=== PATIENT | female | born 1945 | race Hispanic/Latino ===

== ENCOUNTER 2016-12-16 15:44 | Inpatient (IN) | payer BC, MEDICARE ==
--- NOTE | 2016-12-16 16:31 | ED PDOC ---
HPI: Seizure Time Seen by Provider: 12/16/16 15:51 Chief Complaint (Nursing): Seizure History Per: Patient, EMS History/Exam Limitations: no limitations Recent Seizure Activity Began: Just Before Arrival Number Of Seizures: One Length Of Seizures (Duration): Minutes Quality Of Seizure: Focal Involving: (left arm only6) Precipitating Factor(s): None. denies: Decreased Sleep, Missed Dose Of Anti- seizure Medication, Recent Change In Medication Or Dose, Recent Alcohol Ingestion, Recent Street Drugs, Recent Head Trauma Associated Symptoms: denies: Bit Tongue, Incontinence Of Urine, Incontinence Of Stool, Injury As A Result Of Seizure Activity Post-ictal Period: No Severity: Mild Additional History Per: Patient Additional Complaint(s): pt had tremors of her left hand only no loc no syncope no bowel or bladder incontinence no post ictal. no prev sx. Past Medical History Reviewed: Historical Data, Nursing Documentation, Vital Signs Vital Signs: Last Vital Signs Temp 98.0 F 12/16/16 18:29 Pulse 90 12/16/16 18:29 Resp 20 12/16/16 18:29 BP 157/96 H 12/16/16 18:29 Pulse Ox 98 12/16/16 18:29 - Medical History PMH: HTN, Hyperlipidemia - Surgical History Surgical History: Cholecystectomy - Family History Family History: States: Unknown Family Hx - Living Arrangements Living Arrangements: With Family - Social History Current smoker - smoking cessation education provided: No Alcohol: None Drugs: Denies - Allergies Allergies/Adverse Reactions: Allergies Allergy/AdvReac Type Severity Reaction Status Date / Time No Known Allergies Allergy Verified 12/16/16 15:59 Review of Systems ROS Statement: Except As Marked, All Systems Reviewed And Found Negative Constitutional: Negative for: Fever, Chills Cardiovascular: Negative for: Chest Pain, Palpitations Respiratory: Negative for: Cough, Shortness of Breath Gastrointestinal: Negative for: Nausea, Vomiting, Abdominal Pain Genitourinary Female: Negative for: Dysuria Musculoskeletal: Negative for: Neck Pain Skin: Negative for: Rash Neurological: Positive for: Seizures. Negative for: Weakness, Numbness, Incoordination, Change in Speech, Confusion, Altered Mental Status, Headache, Dizziness Physical Exam - Reviewed Nursing Documentation Reviewed: Yes Vital Signs Reviewed: Yes - Physical Exam Appears: Positive for: Well, No Acute Distress Head Exam: Positive for: ATRAUMATIC, NORMAL INSPECTION, NORMOCEPHALIC Skin: Positive for: Normal Color, Warm, Dry Eye Exam: Positive for: Normal appearance, EOMI. Negative for: Nystagmus, Periorbital swelling, Periorbital tenderness ENT: Positive for: Pharynx Is (clear,mmm) Neck: Positive for: Normal, Painless ROM, Supple. Negative for: Decreased ROM, Limited ROM, Trachea Midline Cardiovascular/Chest: Positive for: Regular Rate, Rhythm, Chest Non Tender. Negative for: Edema, Gallop, Murmur, Bradycardia, Tachycardia, Ectopy, Friction Rub, Irregularly Irregular Respiratory: Positive for: Normal Breath Sounds. Negative for: Decreased Breath Sounds, Accessory Muscle Use, Crackles, Rales, Rhonchi, Stridor, Wheezing , Respiratory Distress Pulses-Radial (L): 2+ Pulses-Radial (R): 2+ Gastrointestinal/Abdominal: Positive for: Normal Exam, Bowel Sounds, Soft. Negative for: Tenderness Back: Positive for: Normal Inspection. Negative for: L CVA Tenderness, R CVA Tenderness Extremity: Positive for: Normal ROM. Negative for: Tenderness, Pedal Edema, Calf Tenderness, Deformity, Swelling Neurologic/Psych: Positive for: Alert, press loader II-XII, Oriented, Mood/Affect (calm) , Cerebellar Tests (ftn and nts nml). Negative for: Motor/Sensory Deficits, Aphasia, Facial Droop - Laboratory Results Result Diagrams: 12/16/16 16:57 12/16/16 16:57 - ECG ECG: Positive for: Interpreted By Wa ECG Rhythm: Positive for: Normal ST Segment, Sinus Rhythm, Right Bundle Branch Block. Negative for: ST/T Changes Interpretation Of Abn EKG: rate of 96 no old ecg O2 Sat by Pulse Oximetry: 100 Pulse Ox Interpretation: Normal - Radiology X-Ray: Interpreted by Wa X-Ray Interpretation: No Acute Disease - Progress ED Course And Treament: will admit to tele Re-evaluation Time: 18:00 Disposition - Clinical Impression Clinical Impression: Seizure disorder - Patient ED Disposition Is Patient to be Admitted: No Counseled Patient/Family Regarding: Studies Performed, Diagnosis - Disposition Disposition Time: 18:00 Condition: STABLE - Pt Status Changed To: Hospital Disposition Of: Inpatient - Admit Certification Admit to Inpatient:: After my assessment, the patient will require hospitalization for at least two midnights. This is because of the severity of symptoms shown, intensity of services needed, and/or the medical risk in this patient being treated as an outpatient. - POA Present On Arrival: None
[2016-12-16 17:04] LABS: BASO % 0.4 % (0.0-2.0); EOS % 0.4 % (0.0-4.0); HEMATOCRIT 40.2 % (34.0-47.0); LYMPH # 1.5 K/uL (1.0-4.3); LYMPH % 18.5 % (20.0-40.0); MEAN CORPUSCULAR HEMOGLOBIN 29.9 pg (27.0-31.0); MEAN CORPUSCULAR HGB CONC 33.2 g/dL (33.0-37.0); MEAN PLATELET VOLUME 9.2 fl (7.2-11.7); MONO # 0.7 K/uL (0.0-0.8); MONO % 8.7 % (0.0-10.0); NEUT # 5.8 K/uL (1.8-7.0); RED CELL DISTRIBUTION WIDTH 13.3 % (11.5-14.5)
[2016-12-16 17:14] LABS: ALB/GLOB RATIO 1.3 (1.0-2.1); ALKALINE PHOSPHATASE 63 U/L (38-126); ALT/SGPT 26 U/L (9-52); AST/SGOT 26 U/L (14-36); BILIRUBIN,TOTAL 0.4 mg/dl (0.2-1.3); BLOOD UREA NITROGEN 14 mg/dl (7-17); CALCIUM 9.2 mg/dL (8.4-10.2); CARBON DIOXIDE 22 mmol/L (22-30); CHLORIDE 101 mmol/L (98-107); GFR AFRICAN-AMERICAN > 60; GLUCOSE,RANDOM 137 mg/dL (65-105); MAGNESIUM 1.8 MG/DL (1.6-2.3); POTASSIUM 4.6 MMOL/L (3.6-5.0); SODIUM 136 mmol/l (132-148); TOTAL PROTEIN 7.5 G/DL (6.3-8.2)
[2016-12-16 17:24] LABS: PARTIAL THROMBOPLASTIN TIME 25.5 SECONDS (23.3-32.5)
--- NOTE | 2016-12-16 17:38 | CT ---
PROCEDURE: CT HEAD WITHOUT CONTRAST. HISTORY: new onset seizure COMPARISON: None available. TECHNIQUE: Axial computed tomography images were obtained through the head/brain without intravenous contrast. Radiation dose: Total exam DLP = 805 mGy-cm. This CT exam was performed using one or more of the following dose reduction techniques: Automated exposure control, adjustment of the mA and/or kV according to patient size, and/or use of iterative reconstruction technique. FINDINGS: HEMORRHAGE: No intracranial hemorrhage. BRAIN: No mass effect or edema. Mild chronic microvascular ischemic changes. VENTRICLES: Unremarkable. No hydrocephalus. CALVARIUM: Unremarkable. PARANASAL SINUSES: Unremarkable as visualized. No significant inflammatory changes. MASTOID AIR CELLS: Unremarkable as visualized. No inflammatory changes. OTHER FINDINGS: None. IMPRESSION: No intracranial hemorrhage.
[2016-12-16] MEDS ORDERED: Iodixanol 320 MG/ML 100 ML BOTTLE IV ONE (18:54)
[2016-12-16] MEDS ORDERED: Sodium Chloride 0.9% 50 ML IV ONE (18:54)
--- NOTE | 2016-12-16 20:26 | CT ---
EXAM: CT Angiography Chest With Intravenous Contrast CLINICAL HISTORY: None. TECHNIQUE: Axial computed tomographic angiography images of the chest with intravenous contrast using pulmonary embolism protocol. This CT exam was performed using one or more of the following dose reduction techniques: automated exposure control, adjustment of the mA and/or kV according to patient size, and/or use of iterative reconstruction technique. MIP reconstructed images were created and reviewed. Coronal and sagittal reformatted images were created and reviewed. CONTRAST: 95 mL of administered intravenously. EXAM DATE/TIME: 12/16/2016 6:23 PM COMPARISON: There are no prior studies for comparison. FINDINGS: Artifacts: Motion artifact degrades image quality. Heart, aorta and Pulmonary arteries: The heart is mildly enlarged. There are coronary calcifications.There is trace fluid in pericardial recesses.There is no aneurysm or dissection.There are vascular calcifications. There is perfusion of the 3 arch vessels. There are no central pulmonary emboli. Motion limits evaluation of peripheral vessels. There are no large peripheral pulmonary emboli. Lungs and pleural spaces: Trachea and main bronchi are patent. There is no focal consolidation. There is dependent atelectasis greatest at the lung bases. There is minimal scarring in the lingula. There are no effusions. Mediastinum: Esophagus is unremarkable. There is a moderately large hiatal hernia. There are postsurgical changes at the gastric fundus and gastroesophageal junction. There are no pathologically enlarged mediastinal or hilar nodes. Thyroid: Thyroid is heterogeneous. There is small nodules on the left. There is a large nodule on the right with substernal extension. Bones/joints: There are degenerative changes in the osseus structures. Soft tissues: unremarkable Upper abdomen: There are no acute abnormalities in the visualized portion of the abdomen. Gallbladder is absent IMPRESSION: Goiter; cardiomegaly and atherosclerotic disease, no aneurysm, dissection or central pulmonary emboli, limited evaluation of peripheral vessels, no large peripheral pulmonary emboli Additional findings as described above.
[2016-12-16 20:57] LABS: RBC URINE 4 /hpf (0-3); WBC URINE 5 /hpf (0-5)
[2016-12-16 20:58] LABS: URINE BILIRUBIN NEGATIVE (NEGATIVE); URINE BLOOD NEGATIVE (NEGATIVE); URINE COLOR STRAW (YELLOW); URINE GLUCOSE (UA) NEG (Normal); URINE KETONE 20 mg/dL (NEGATIVE); URINE PROTEIN NEGATIVE (NEGATIVE); URINE UROBILINOGEN 0.2-1.0 mg/dL (0.2-1.0)
[2016-12-16 21:02] LABS: URINE LEUKOCYTE ESTERASE TRACE Leu/uL (Negative)
[2016-12-16] MEDS ORDERED: levETIRAcetam 500 MG in Sodium Chloride 0.9% 100 ML IVPB ONE (22:12)
--- NOTE | 2016-12-16 22:58 | CT ---
EXAM: CT Head Without Intravenous Contrast CLINICAL HISTORY: 71 years old, female; Injury or trauma; Fall; Initial encounter; Concussion / head injury; Consciousness not specified; Injury details: Patient fell in bathroom; Patient HX: Patient had prior CT head at 5 pm this evening; Additional info: S/P fall in bathroom, possible seizure? TECHNIQUE: Axial computed tomography images of the head/brain without intravenous contrast. This CT exam was performed using one or more of the following dose reduction techniques: automated exposure control, adjustment of the mA and/or kV according to patient size, and/or use of iterative reconstruction technique. Coronal and sagittal reformatted images were created and reviewed. EXAM DATE/TIME: 12/16/2016 10:12 PM COMPARISON: CT - HEAD W/O CONTRAST 12/16/2016 5:06:19 PM FINDINGS: Brain: Ventricles are normal in size and configuration. There is no midline shift.There is mild decrease attenuation in periventricular white matter. There is small age-indeterminate lacunar infarcts in the basal ganglia. There are no intra-axial or extra-axial mass lesions or areas of hemorrhage. There are no abnormal fluid collections. Velarde-white differentiation is maintained. Ventricles: See above Bones: Cranial vault is intact. Soft tissues: unremarkable Sinuses: There is no acute sinusitis. There is mucoperiosteal thickening in the sinuses. Ears and mastoids: Middle ears and mastoids are unremarkable Orbits: Orbital contents are unremarkable. IMPRESSION: No acute intracranial abnormality
[2016-12-17] MEDS ORDERED: Dextrose 5%/0.45% NS 1,000 ML IV SCH (00:15)
[2016-12-17 05:52] LABS: BASO % 0.4 % (0.0-2.0); EOS % 0.3 % (0.0-4.0); HEMATOCRIT 33.6 % (34.0-47.0); LYMPH # 1.2 K/uL (1.0-4.3); LYMPH % 15.4 % (20.0-40.0); MEAN CELL VOLUME 89.5 fl (81.0-99.0); MEAN CORPUSCULAR HGB CONC 33.5 g/dL (33.0-37.0); MEAN PLATELET VOLUME 8.8 fl (7.2-11.7); MONO % 12.5 % (0.0-10.0); NEUT # 5.5 K/uL (1.8-7.0); NEUT % 71.4 % (50.0-75.0); RED CELL DISTRIBUTION WIDTH 13.2 % (11.5-14.5); WHITE BLOOD COUNT 7.7 K/uL (4.8-10.8)
[2016-12-17 06:21] LABS: BLOOD UREA NITROGEN 13 mg/dl (7-17); CALCIUM 8.3 mg/dL (8.4-10.2); CARBON DIOXIDE 24 mmol/L (22-30); CHLORIDE 103 mmol/L (98-107); CHOLESTEROL 98 mg/dL (0-199); GFR AFRICAN-AMERICAN > 60; GLUCOSE,RANDOM 123 mg/dL (65-105); POTASSIUM 3.7 MMOL/L (3.6-5.0); SODIUM 136 mmol/l (132-148)
[2016-12-17 06:34] LABS: T4 9.55 ug/dl (5.5-11.0)
[2016-12-17 06:48] LABS: THYROID STIMULATING HORMONE 0.68 mIU/ML (0.46-4.68)
--- NOTE | 2016-12-17 08:15 | CARD ---
APPROVED REPORT EKG Measurement Heart [id number] <Conclusion> Normal sinus rhythm Possible Left atrial enlargement Right bundle branch block Abnormal ECG
[2016-12-17] MEDS ORDERED: Pantoprazole 40 mg EC Tab PO ONE (08:24)
[2016-12-17] MEDS: Pantoprazole 40 mg EC Tab PO SCH (08:30)
[2016-12-17] MEDS ORDERED: Gadodiamide 287 MG/ML VIAL (15ML) IV ONE (08:30)
--- NOTE | 2016-12-17 09:21 | CARD ---
APPROVED REPORT EKG Measurement Heart [id number] <Conclusion> Sinus tachycardia Possible Left atrial enlargement Right bundle branch block Abnormal ECG
--- NOTE | 2016-12-17 10:05 | RAD ---
PROCEDURE: CHEST RADIOGRAPH, 1 VIEW HISTORY: new onset seizure COMPARISON: None available. FINDINGS: LUNGS: Clear. PLEURA: No pneumothorax or pleural fluid seen. CARDIOVASCULAR: No radiographic findings to suggest acute or significant cardiovascular disease. OSSEOUS STRUCTURES: No significant abnormalities. VISUALIZED UPPER ABDOMEN: Normal. OTHER FINDINGS: None. IMPRESSION: No active disease.
--- NOTE | 2016-12-17 10:12 | HP ---
HISTORY OF PRESENT ILLNESS: The patient is a 71-year-old female who was admitted via the Emergency R oom because of a syncopal episode and tremors of the left upper extremity. This happened while she w as trying to get into her car at work and again she had a syncopal episode while in the bathroom in [facility] being evaluated. PAST MEDICAL HISTORY: She has a past medical history of left knee replacement, spine manipulations f or scoliosis and arthritis by a chiropractor. She also has a history of hypertension and hyperlipide lavern. PAST SURGICAL HISTORY: She in the past had surgery for hiatal hernia. FAMILY HISTORY: Nonrevealing. SOCIAL HISTORY: She does not smoke or drink and is an linux network administrator of a school. REVIEW OF SYSTEMS: Remarkable for back pains and occasional knee pains. PHYSICAL EXAMINATION: GENERAL: The patient is alert and oriented. VITAL SIGNS: Blood pressure 157/96, pulse of 90, respirations 20. She is afebrile. O2 sat 98% on r oom air. SKIN: Shows fair turgor. HEENT: Pupils equal, react to light and accommodation. Mouth shows fair hygiene. NECK: JVP flat. LUNGS: Clear. HEART: Regular. No murmurs or gallop. BREASTS: Normal. ABDOMEN: Soft, nontender, no organomegaly. EXTREMITIES: Shows arthritic changes, otherwise unremarkable. There is a scar of left knee surgery. RECTAL AND GENITALIA: Deferred. CENTRAL NERVOUS SYSTEM: Grossly intact except for poor memory regarding events. LABORATORY DATA: Remarkable for a CT scan of the head that shows no acute disease. CT sca n of the chest: Motion artifacts, goiter, cardiomegaly, atherosclerotic disease. No aneurysm or dis section or pulmonary emboli. EKG is remarkable for normal sinus rhythm, possible left atrial enlarge ment, right bundle branch block. MRI of the brain requested, results pending. Chest x-ray done, off icial report pending. WBC 7.0, hemoglobin 11.2, platelet count 195,000. Sodium 136, potassium 3.7, BUN of 13, creatinine 0.8, serum glucose 123. Triglycerides 62. Cholesterol 98. Thyroid profile is normal. Troponin pending. IMPRESSION: Syncopal episode, questionable etiology. Tremors of extremity, questionable etiology. Hypertension, poorly controlled. Hyperlipidemia, fairly controlled. PLAN: Neurology evaluation, cardiac evaluation. Maintain patient in telemetry. We will give Loveno x for DVT prophylaxis. Further therapy will depend on findings. Adan Ibanez MD cc: [id number] TT: 12/17/2016 10:11:43 jn
--- NOTE | 2016-12-17 10:16 | RAD ---
PROCEDURE: Radiographs of the Chest and Right Ribs. HISTORY: s/p fall COMPARISON: None available. TECHNIQUE: Frontal radiograph of the chest and multiple oblique radiographs of the right ribs were obtained. FINDINGS: RIGHT RIBS: No fracture or focal lesion visualized. LUNGS: Clear. PLEURA: No pneumothorax or pleural fluid. CARDIOVASCULAR: Normal sized heart. No pulmonary vascular congestion. OTHER FINDINGS: None. IMPRESSION: Unremarkable radiographs of the chest and right ribs. No right rib fracture.
--- NOTE | 2016-12-17 10:25 | MRI ---
PROCEDURE: MRI BRAIN WITH AND WITHOUT CONTRAST HISTORY: seizure COMPARISON: Head CT dated 12/16/2016 TECHNIQUE: Multiplanar, multisequence MR images of the brain were obtained with and without intravenous contrast enhancement. FINDINGS: HEMORRHAGE: None DWI: No evidence of an acute or early subacute infarction. BRAIN PARENCHYMA: No mass,mass effect or edema. Extensive chronic microvascular ischemic disease. ENHANCEMENT: No abnormal intracranial enhancement. VENTRICLES: Unremarkable. No hydrocephalus. CRANIUM: Unremarkable. ORBITS: Grossly unremarkable. PARANASAL SINUSES/MASTOIDS: Clear VASCULAR SYSTEM: Skull base flow voids intact. OTHER FINDINGS: None . IMPRESSION: Extensive chronic microvascular ischemic disease.
--- NOTE | 2016-12-17 11:56 | US ---
PROCEDURE: Carotid vertebral duplex sonography HISTORY: new onset seizure COMPARISON: None available. TECHNIQUE: Grayscale, color Doppler and spectral Doppler assessment of the carotid system bilaterally. This includes common carotid, internal carotid arteries Vertebral artery assessment with respect to direction of flow (antegrade or retrograde) FINDINGS: RIGHT carotid system: Assessment of plaque: Heterogeneous plaque formation. Peak systolic ICA velocity: 82.3 cm/sec End-diastolic velocity: 35.7 cm/sec ICA/CCA ratio: 0.9 Vertebral artery flow: Antegrade LEFT carotid system: Assessment of plaque: Heterogeneous plaque formation. Peak systolic ICA velocity: 75.2 cm/sec End-diastolic velocity: 30.8 cm/sec ICA/CCA ratio: 0.7 Vertebral artery flow: Antegrade Incidental finding(s): Incompletely visualize/characterize thyroid nodules. Elective thyroid ultrasound advised. IMPRESSION: Right ICA degree of stenosis: Less than 50% Left ICA degree of stenosis: Less than 50% Reference Internal Carotid Artery (ICA) Peak Systolic Velocity (PSV) for above: 1. Less than 50% stenosis less than 125 cm/s peak systolic velocity 2. 50-69% stenosis 125-230cm/s peak systolic velocity 3. Greater than 70% but less than near occlusion greater than 230 cm/s peak systolic velocity
--- NOTE | 2016-12-17 12:20 | CP.PCM.CON ---
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 seizure Pt first noticed 2 separate episodes of her Left arm tremoring lasting seconds/minutes This was followed by losing consciousness in her car prior to starting it She again had LOC here in the ER when she went to the bathroom ? post ictal / ? bit her tongue PMH: HTN Hyperlipidemia multiple orthopedic surgeries EKG: CRBBB Echo to be reviewed Review of Systems - Cardiovascular Cardiovascular: Syncope Past Patient History - Past Social History Smoking Status: Never Smoked Alcohol: None Drugs: Denies - CARDIAC Hx Hypertension: Yes - GASTROINTESTINAL Hx Gastrointestinal Disorders: Yes Hx Gastroesophageal Reflux: Yes - PSYCHIATRIC Hx Substance Use: No - SURGICAL HISTORY Hx Cholecystectomy: Yes - ANESTHESIA Hx Anesthesia: Yes Hx Anesthesia Reactions: No Meds Allergies/Adverse Reactions: Allergies Allergy/AdvReac Type Severity Reaction Status Date / Time No Known Allergies Allergy Verified 12/16/16 15:59 - Medications Medications: Current Medications Acetaminophen (Tylenol 325mg Tab) 650 mg PO Q4 PRN PRN Reason: Pain, Mild (1-3) Last Admin: 12/16/16 23:28 Dose: 650 mg Aspirin (Aspirin Chewable) 81 mg PO DAILY [facility] Last Admin: 12/17/16 08:00 Dose: 81 mg Enoxaparin Sodium (Lovenox) 40 mg SC DAILY [facility] PRN Reason: Protocol Dextrose/Sodium Chloride (Dextrose 5%/0.45% Ns 1000 Ml) 1,000 mls @ 100 mls/hr IV .Q10H [facility] Stop: 12/18/16 00:15 Last Admin: 12/17/16 01:45 Dose: 100 mls/hr Metoprolol Tartrate (Lopressor) 25 mg PO DAILY [facility] Montelukast Sodium (Singulair) 10 mg PO HS [facility] Pantoprazole Sodium (Protonix Ec Tab) 40 mg PO DAILY [facility] Last Admin: 12/17/16 08:30 Dose: 40 mg Physical Exam - Constitutional Appears: No Acute Distress - Head Exam Head Exam: NORMAL INSPECTION - Eye Exam Eye Exam: Normal appearance - ENT Exam ENT Exam: Normal Exam - Neck Exam Neck exam: Positive for: Normal Inspection - Respiratory Exam Respiratory Exam: NORMAL BREATHING PATTERN - Cardiovascular Exam Cardiovascular Exam: REGULAR RHYTHM Results - Vital Signs Recent Vital Signs: Last Vital Signs Temp 98.1 F 12/17/16 08:25 Pulse 74 12/17/16 08:25 Resp 18 12/17/16 08:25 BP 130/55 L 12/17/16 08:25 Pulse Ox 96 12/17/16 08:25 - Labs Result Diagrams: 12/17/16 05:32 12/17/16 05:32 Labs: Laboratory Results - last 24 hr 12/16/16 12/16/16 12/17/16 20:42 22:08 05:32 WBC 7.7 RBC 3.75 L Hgb 11.2 L D Hct 33.6 L MCV 89.5 MCH 30.0 MCHC 33.5 RDW 13.2 Plt Count 195 MPV 8.8 Neut % (Auto) 71.4 Lymph % (Auto) 15.4 L Long % (Auto) 12.5 H Eos % (Auto) 0.3 Baso % (Auto) 0.4 Neut # 5.5 Lymph # 1.2 Long # 1.0 H Eos # 0.0 Baso # 0.0 Sodium Potassium Chloride Carbon Dioxide Anion Gap BUN Creatinine Est GFR ( Amer) Est GFR (Non-Af Amer) POC Glucose (mg/dL) 166 H Random Glucose Calcium Troponin I Triglycerides Cholesterol LDL Cholesterol Direct HDL Cholesterol Thyroxine (T4) TSH 3rd Generation Urine Color Straw Urine Clarity Clear Urine pH 6.0 Ur Specific Olds 1.019 Urine Protein Negative Urine Glucose (UA) Neg Urine Ketones 20 Urine Blood Negative Urine Nitrate Negative Urine Bilirubin Negative Urine Urobilinogen 0.2-1.0 Ur Leukocyte Esterase Trace H Urine RBC (Auto) 4 H Urine Microscopic WBC 5 Ur Squamous Epith Cells 1 12/17/16 12/17/16 05:32 10:40 WBC RBC Hgb Hct MCV MCH MCHC RDW Plt Count MPV Neut % (Auto) Lymph % (Auto) Long % (Auto) Eos % (Auto) Baso % (Auto) Neut # Lymph # Long # Eos # Baso # Sodium 136 Potassium 3.7 Chloride 103 Carbon Dioxide 24 Anion Gap 12 BUN 13 Creatinine 0.8 Est GFR ( Amer) > 60 Est GFR (Non-Af Amer) > 60 POC Glucose (mg/dL) Random Glucose 123 H Calcium 8.3 L Troponin I 0.0640 Triglycerides 52 Cholesterol 98 LDL Cholesterol Direct 56 HDL Cholesterol 26 L Thyroxine (T4) 9.55 TSH 3rd Generation 0.68 Urine Color Urine Clarity Urine pH Ur Specific Olds Urine Protein Urine Glucose (UA) Urine Ketones Urine Blood Urine Nitrate Urine Bilirubin Urine Urobilinogen Ur Leukocyte Esterase Urine RBC (Auto) Urine Microscopic WBC Ur Squamous Epith Cells Assessment & Plan (1) Essential (primary) hypertension Status: Acute (2) Mixed hyperlipidemia Status: Acute (3) Seizure disorder Assessment and Plan: r/o Seizure disorder vs Syncope As of now this does not appear to be Cardiac in origin but will follow up Status: Acute
--- NOTE | 2016-12-17 14:06 | CON ---
DATE: 12/17/2016 CHIEF COMPLAINT: Syncope. HISTORY OF PRESENTING ILLNESS: A 71-year-old woman was admitted with a past medical history of left knee replacement, manipulation scoliosis and arthritis by a chiropractor, history of hypertension, hy perlipidemia. Had a syncopal episode in terms of the left upper extremity. The patient was trying t o get into her car at work and she had a syncopal episode, as well as had a syncopal episode while in the bathroom. She was aware, doing well, was conscious when her left arm was shaking and was aware with no really postictal phenomena. MRI of the brain was unremarkable. Her EEG did show some right temporal slowing, but no epileptiform activity and have started her on Keppra 250 mg p.o. b.i.d. and will follow up with me in the office. PAST MEDICAL HISTORY: Hypertension, hyperlipidemia, multiple orthopedic surgeries. REVIEW OF SYSTEMS: a 14 point review of systems negative except for the HPI. ALLERGIES: No known drug allergies. SOCIAL HISTORY: No illicit drug use, smoking, or ETOH abuse. FAMILY HISTORY: Noncontributory. PHYSICAL EXAMINATION: VITAL SIGNS: Temperature 98.1, pulse rate 74, blood pressure 130/55, respiratory rate of 18, oxygen saturation 96% via room air. GENERAL: The patient is sitting up in bed in no acute distress. HEENT: Atraumatic, normocephalic. PERRLA. Extraocular muscles intact. NECK: Supple, no JVD, no adenopathy noted. LUNGS: Clear to auscultation. No adventitious sounds. HEART: S1, S2, normal rate and rhythm. No murmurs, rubs, or gallops. ABDOMEN: Soft, nontender, nondistended. Bowel sounds present. EXTREMITIES: No clubbing, no cyanosis. Peripheral pulses 2+ felt bilaterally. NEUROLOGIC: The patient is alert, orientated to person, place, month and year. Speech is fluent wit hout any errors. Cranial nerves II-XII intact. MOTOR: Moves all extremities equally. Toes downgoing bilaterally. SENSORY: Light touch, pinprick, proprioception, vibration intact. DTRs are 2+ throughout. COORDINATION: [id number] intact. Gait is deferred for now. LABORATORY DATA: MRI of the brain just shows extensive chronic microvascular disease. No abnormal e nhancement. EEG showed just right temporal slowing, but no epileptiform activity. Sodium is 136, po tassium 3.7, chloride of 103, carbon dioxide 24, BUN of 13, creatinine 0.8. Random glucose of 123. ASSESSMENT AND PLAN: This is a 71-year-old woman with history of spine manipulation scoliosis and ar thritis by a chiropractor, history of left knee replacement, history of hypertension, hyperlipidemia. Had tremors of the left upper extremity and had a syncopal episode while getting into her [place] and then she had a syncopal episode while she was in the bathroom. EEG shows some right temporal slowing, but no epileptiform activity. MRI of the brain was unremarkable. Likely, her syncopal even t could be a vasovagal type? versus seizure. At this time, we will keep her on Keppra 250 mg p.o. b. i.d. for tremors as well as seizure prophylaxis and get better control of her hypertension. Low sodi um diet and keep her blood pressure between 120-130 mmHg. She can follow up in the office for possib le further ambulatory EEG. At this time, continue with current present medical management. She is c linically stable from my standpoint. Please reconsult if necessary. Christian Quijano MD cc: [id number] TT: 12/17/2016 14:05:32 Confirmation # [id number] Dictation # [id number]
--- NOTE | 2016-12-17 14:07 | EEG ---
DATE: 12/17/2016 This is an awake EEG. DIAGNOSIS: Evaluate for seizure. MEDICATIONS: Reviewed via nurse's reconciliation sheet. INTERPRETATION: This is a 16-channel international recording. The background activity is composed o f 8-1/2 cycles per second. There was a small amount of beta activity at 16-20 cycles per second seen in this recording. There was a small amount of theta activity of 5-7 cycles per second seen in this tracing. Drowsiness was characterized by mixed beta and theta activities. Sleep was characterized by vertex transient waves, sleep spindles and bilateral slowing. Photic stimulation showed no change in the tracing. There was some evidence of some right temporal slowing, but no paroxysmal activity recorded. CONCLUSION: Abnormal electroencephalogram due to presence of right temporal slowing with no evidence of any epileptiform activity. Please clinically correlate. Christian Quijano MD cc: [phone] TT: 12/17/2016 14:07:09 Confirmation # [id number] Dictation # [id number] mn
[2016-12-17] MEDS: Enoxaparin 40 mg Syringe SC SCH (14:21)
[2016-12-18 04:23] VITALS: O2SAT 97
--- NOTE | 2016-12-18 07:40 | CARD ---
APPROVED REPORT EXAM: Two-dimensional and M-mode echocardiogram with Doppler and color Doppler. Other Information Quality : [employer] : 2D DIMENSIONS IVSd0.91 (0.7-1.1cm)LVDd4.31 (3.9-5.9cm) LVOT Diameter1.64 (1.8-2.4cm)PWd1.15 (0.7-1.1cm) IVSs1.33 (0.8-1.2cm)LVDs2.78 (2.5-4.0cm) FS (%) 35.6 %PWs1.71 (0.8-1.2cm) M-Mode DIMENSIONS Left Atrium (MM)3.98 (2.5-4.0cm)IVSd0.75 (0.7-1.1cm) Aortic Root2.67 (2.2-3.7cm)LVDd4.91 (4.0-5.6cm) Aortic Cusp Exc.1.67 (1.5-2.0cm)PWd0.82 (0.7-1.1cm) IVSs1.21 cmFS (%) 46 % LVDs2.67 (2.0-3.8cm)PWs1.46 cm Aortic Valve LVOT Peak Naiytjlm103.5cm/s Mitral Valve MV E Nvdvwbql24.4cm/sMV DECEL [id number] A Hycrwirz281.9cm/s MV MRM59niS/A ratio0.7MVA (PHT)3.30cm2 TDI Lateral E' Peak V9.78cm/sMedial E' Peak V7.33cm/sE/Lateral E'7.0 E/Medial E'9.3 Pulmonary Valve PV Peak Kabthprg11.3cm/s Tricuspid Valve TR Peak Nsegwkfo027cx/sRAP [id number] Peak Gr.24mmHg [id number] LEFT VENTRICLE The left ventricle is normal size. There is normal left ventricular wall thickness. Left ventricle systolic function is normal. The Ejection Fraction is 65-70%. There is normal LV segmental wall motion. Transmitral Doppler flow pattern is Grade I-abnormal relaxation pattern. RIGHT VENTRICLE The right ventricle is normal size. There is normal right ventricular wall thickness. The right ventricular systolic function is normal. ATRIA The left atrium size is normal. The right atrium size is normal. AORTIC VALVE The aortic valve is normal in structure and function. No aortic regurgitation is present. There is no aortic valvular stenosis. MITRAL VALVE The mitral valve is normal in structure. There is no evidence of mitral valve prolapse. There is no mitral valve stenosis. Mitral regurgitation is mild. TRICUSPID VALVE The tricuspid valve is normal in structure. There is mild tricuspid regurgitation. Right ventricular systolic pressure is estimated at 34 mmHg. There is mild pulmonary hypertension. PULMONIC VALVE The pulmonary valve is normal in structure and function. There is no pulmonic valvular regurgitation. GREAT VESSELS The aortic root is normal in size. The IVC was not visualized. PERICARDIAL EFFUSION The pericardium appears normal. <Conclusion> The left ventricle is normal size. There is normal left ventricular wall thickness. There is normal LV segmental wall motion. Left ventricle systolic function is normal. The Ejection Fraction is 65-70%. Transmitral Doppler flow pattern is Grade I-abnormal relaxation pattern.
[2016-12-18 08:20] VITALS: RESP 20
--- NOTE | 2016-12-18 09:13 | CP.PCM.DIS ---
Provider - Provider Date of Admission: 12/16/16 18:21 Attending physician: Adan Ibanez MD Time Spent in preparation of Discharge (in minutes): 30 Diagnosis - Discharge Diagnosis (1) Syncope Status: Acute (2) Arthritis Status: Acute (3) Essential (primary) hypertension Status: Acute (4) Mixed hyperlipidemia Status: Acute (5) Seizure disorder Status: Acute Hospital Course - Lab Results Lab Results: Most Recent Lab Values WBC 7.7 K/uL (4.8-10.8) 12/17/16 05:32 RBC 3.75 Mil/uL (3.80-5.20) L 12/17/16 05:32 Hgb 11.2 g/dL (12.0-16.0) L D 12/17/16 05:32 Hct 33.6 % (34.0-47.0) L 12/17/16 05:32 MCV 89.5 fl (81.0-99.0) 12/17/16 05:32 MCH 30.0 pg (27.0-31.0) 12/17/16 05:32 MCHC 33.5 g/dL (33.0-37.0) 12/17/16 05:32 RDW 13.2 % (11.5-14.5) 12/17/16 05:32 Plt Count 195 K/uL (130-400) 12/17/16 05:32 MPV 8.8 fl (7.2-11.7) 12/17/16 05:32 Neut % (Auto) 71.4 % (50.0-75.0) 12/17/16 05:32 Lymph % (Auto) 15.4 % (20.0-40.0) L 12/17/16 05:32 [place] % (Auto) 12.5 % (0.0-10.0) H 12/17/16 05:32 Eos % (Auto) 0.3 % (0.0-4.0) 12/17/16 05:32 Baso % (Auto) 0.4 % (0.0-2.0) 12/17/16 05:32 Neut # 5.5 K/uL (1.8-7.0) 12/17/16 05:32 Lymph # 1.2 K/uL (1.0-4.3) 12/17/16 05:32 [place] # 1.0 K/uL (0.0-0.8) H 12/17/16 05:32 Eos # 0.0 K/uL (0.0-0.7) 12/17/16 05:32 Baso # 0.0 K/uL (0.0-0.2) 12/17/16 05:32 PT 10.2 SECONDS (9.6-11.2) 12/16/16 17:57 INR 0.98 (0.92-1.08) 12/16/16 17:57 APTT 25.5 SECONDS (23.3-32.5) 12/16/16 17:57 Sodium 136 mmol/l (132-148) 12/17/16 05:32 Potassium 3.7 MMOL/L (3.6-5.0) 12/17/16 05:32 Chloride 103 mmol/L (98-107) 12/17/16 05:32 Carbon Dioxide 24 mmol/L (22-30) 12/17/16 05:32 Anion Gap 12 (10-20) 12/17/16 05:32 BUN 13 mg/dl (7-17) 12/17/16 05:32 Creatinine 0.8 mg/dL (0.7-1.2) 12/17/16 05:32 Est GFR ( Amer) > 60 12/17/16 05:32 Est GFR (Non-Af Amer) > 60 12/17/16 05:32 POC Glucose (mg/dL) 166 mg/dL (65-110) H 12/16/16 22:08 Random Glucose 123 mg/dL (65-105) H 12/17/16 05:32 Calcium 8.3 mg/dL (8.4-10.2) L 12/17/16 05:32 Magnesium 1.8 MG/DL (1.6-2.3) 12/16/16 16:57 Total Bilirubin 0.4 mg/dl (0.2-1.3) 12/16/16 16:57 AST 26 U/L (14-36) 12/16/16 16:57 ALT 26 U/L (9-52) 12/16/16 16:57 Alkaline Phosphatase 63 U/L (38-126) 12/16/16 16:57 Total Creatine Kinase 70 U/L (30-135) 12/16/16 16:57 Troponin I 0.0640 ng/mL (0.00-0.120) 12/17/16 10:40 Total Protein 7.5 G/DL (6.3-8.2) 12/16/16 16:57 Albumin 4.3 g/dL (3.5-5.0) 12/16/16 16:57 Globulin 3.2 gm/dL (2.2-3.9) 12/16/16 16:57 Albumin/Globulin Ratio 1.3 (1.0-2.1) 12/16/16 16:57 Triglycerides 52 mg/DL (0-149) 12/17/16 05:32 Cholesterol 98 mg/dL (0-199) 12/17/16 05:32 LDL Cholesterol Direct 56 mg/dL (0-129) 12/17/16 05:32 HDL Cholesterol 26 MG/DL (30-70) L 12/17/16 05:32 Thyroxine (T4) 9.55 ug/dl (5.5-11.0) 12/17/16 05:32 TSH 3rd Generation 0.68 mIU/ML (0.46-4.68) 12/17/16 05:32 Urine Color Straw (YELLOW) 12/16/16 20:42 Urine Clarity Clear (Clear) 12/16/16 20:42 Urine pH 6.0 (5.0-8.0) 12/16/16 20:42 Ur Specific [place] 1.019 (1.003-1.030) 12/16/16 20:42 Urine Protein Negative mg/dL (NEGATIVE) 12/16/16 20:42 Urine Glucose (UA) Neg mg/dL (Normal) 12/16/16 20:42 Urine Ketones 20 mg/dL (NEGATIVE) 12/16/16 20:42 Urine Blood Negative (NEGATIVE) 12/16/16 20:42 Urine Nitrate Negative (NEGATIVE) 12/16/16 20:42 Urine Bilirubin Negative (NEGATIVE) 12/16/16 20:42 Urine Urobilinogen 0.2-1.0 mg/dL (0.2-1.0) 12/16/16 20:42 Ur Leukocyte Esterase Trace Pina/uL (Negative) H 12/16/16 20:42 Urine RBC (Auto) 4 /hpf (0-3) H 12/16/16 20:42 Urine Microscopic WBC 5 /hpf (0-5) 12/16/16 20:42 Ur Squamous Epith Cells 1 /hpf (0-5) 12/16/16 20:42 - Hospital Course Hospital Course: NO RECURRENCE VOF SEIZURES FEELS BETTER WANTS TO GO HOME Discharge Exam - Head Exam Head Exam: NORMAL INSPECTION - Eye Exam Eye Exam: EOMI, Normal appearance, PERRL Pupil Exam: NORMAL ACCOMODATION, PERRL - GI/Abdominal Exam GI & Abdominal Exam: Normal Bowel Sounds - Rectal Exam Rectal Exam: NORMAL INSPECTION - Neurological Exam Neurological exam: Alert, CN II-XII Intact, Normal Gait, Oriented x3, Reflexes Normal - Psychiatric Exam Psychiatric exam: Normal Affect, Normal Mood - Skin Skin Exam: Dry, Intact, Normal Color, Warm Discharge Plan - Follow Up Plan Condition: STABLE Disposition: HOME/ ROUTINE Patient education suggested?: Yes Additional Instructions: ADVISED NOT TO OPERATE HEAVY MACHINERY OR ORTHO CONTINUE KEPPRA 250 MG BID FOLLOW UP WITH PMD AND NEUROLOGIST OUT PT
[2016-12-18] MEDS: Pantoprazole 40 mg EC Tab PO SCH (09:22)
[2016-12-18] MEDS: Enoxaparin 40 mg Syringe SC SCH (09:23)
--- NOTE | 2016-12-18 10:32 | CP.PCM.PN ---
Subjective - Date & Time of Evaluation Date of Evaluation: 12/18/16 Time of Evaluation: 10:00 - Subjective Subjective: Feels better No further episodes of Syncope Echo:Good LV function EF: 65 - 70% Discharge planned for today Objective - Vital Signs/Intake and Output Vital Signs (last 24 hours): Temp Pulse Resp BP Pulse Ox 97.8 F 67 20 119/73 97 12/18/16 08:20 12/18/16 09:22 12/18/16 08:20 12/18/16 09:22 12/18/16 08:20 - Medications Medications: Current Medications Acetaminophen (Tylenol 325mg Tab) 650 mg PO Q4 PRN PRN Reason: Pain, Mild (1-3) Last Admin: 12/16/16 23:28 Dose: 650 mg Aspirin (Aspirin Chewable) 81 mg PO DAILY [facility] Last Admin: 12/18/16 09:33 Dose: 81 mg Enoxaparin Sodium (Lovenox) 40 mg SC DAILY [facility] PRN Reason: Protocol Last Admin: 12/18/16 09:23 Dose: 40 mg Levetiracetam (Keppra) 250 mg PO BID [facility] Last Admin: 12/18/16 09:22 Dose: 250 mg Metoprolol Tartrate (Lopressor) 25 mg PO DAILY [facility] Last Admin: 12/18/16 09:22 Dose: 25 mg Montelukast Sodium (Singulair) 10 mg PO HS [facility] Last Admin: 12/17/16 22:03 Dose: 10 mg Pantoprazole Sodium (Protonix Ec Tab) 40 mg PO DAILY [facility] Last Admin: 12/18/16 09:22 Dose: 40 mg - Labs Labs: 12/17/16 05:32 12/17/16 05:32 PT 10.2 SECONDS (9.6-11.2) 12/16/16 17:57 INR 0.98 (0.92-1.08) 12/16/16 17:57 APTT 25.5 SECONDS (23.3-32.5) 12/16/16 17:57 Assessment and Plan (1) Essential (primary) hypertension Status: Acute (2) Mixed hyperlipidemia Status: Acute (3) Seizure disorder Status: Acute
[2016-12-18 12:22] VITALS: BP 125/80; PULSE 71; TEMP 97.9
--- NOTE | 2016-12-19 09:57 | CARD ---
APPROVED REPORT EKG Measurement Heart [id number] CT 202P13 [id number] <Conclusion> Normal sinus rhythm Right bundle branch block Abnormal ECG
== END 2016-12-18 12:38 | disposition home or self-care (01) | DRG 101 ==
LOC: H.ER 15:44 → EDBD 15:44 → H.ERHOLD 18:21 → H.TEL 12-17 14:33
PROVIDERS: ADMIT Internal Medicine Pulmonary Disease; ATTEND Internal Medicine Pulmonary Disease
DX: G40.909 Epilepsy, unspecified, not intractable, without status epilepticus (principal); I10 Essential (primary) hypertension; R55 Syncope and collapse; E78.2 Mixed hyperlipidemia; M19.90 Unspecified osteoarthritis, unspecified site; Z96.652 Presence of left artificial knee joint